=== PATIENT | female | born 1975 ===

== ENCOUNTER 2018-06-06 23:57 | Emergency (ER) | payer SELFPAY ==
[2018-06-07 00:36] VITALS: BMI 30.8
[2018-06-07 00:46] VITALS: BP 135/76; PULSE 100; RESP 18; TEMP 99.8; O2SAT 100
[2018-06-07] MEDS ORDERED: Benzocaine/Menthol (Cepacol) Lozenge MT STA (00:50)
--- NOTE | 2018-06-07 01:40 | ED PDOC ---
Arrival/HPI - General Chief Complaint: ENT Problem Time Seen by Provider: 06/07/18 00:01 Historian: Patient - History of Present Illness Narrative History of Present Illness (Text): 06/07/18 00:50 A 42 year old female with no significant medical history presents to the emergency room complaining of sore throat for the past 1 day. Pain is worse upon swallowing. Patient reports experiencing subjective fever and denies taking any medication for pain. Patient states she took a few tablets of left over augmentin today. No flu shot and denies any sick contacts, difficulty tolerating PO, throat swelling, shortness of breath, chest pain, nausea, vomiting, abdominal pain, neck pain/stiffness, headache, dizziness, drooling, or any other complaints. Time/Duration: 24 hours Symptom Onset: Gradual Symptom Course: Unchanged Activities at Onset: Light Context: Home Past Medical History - Provider Review Nursing Documentation Reviewed: Yes - Gastrointestinal Hx Gastroesophageal Reflux: Yes - Psychiatric Hx Substance Use: No Family/Social History - Physician Review Nursing Documentation Reviewed: Yes Family/Social History: No Known Family HX Smoking Status: Never Smoked Hx Alcohol Use: No Hx Substance Use: No Allergies/Home Meds Allergies/Adverse Reactions: Allergies No Known Allergies Allergy (Verified 06/07/18 00:42) Home Medications: Home Meds Medication Instructions Recorded Confirmed Omeprazole 20 mg PO QOTHERDAY 06/07/18 06/07/18 Review of Systems - Physician Review All systems were reviewed & negative as marked: Yes - Review of Systems Constitutional: Fevers Eyes: Normal. absent: Vision Changes, Photophobia ENT: Sore Throat, Sinus Congestion. absent: Other (drooling) Respiratory: Normal. absent: SOB, Cough, Sputum Cardiovascular: Normal. absent: Chest Pain, Palpitations, Syncope Gastrointestinal: Normal. absent: Abdominal Pain, Nausea, Vomiting Genitourinary Female: Normal. absent: Dysuria, Vaginal Discharge Musculoskeletal: Normal. absent: Back Pain, Neck Pain Skin: Normal. absent: Rash Neurological: Normal. absent: Headache, Dizziness Physical Exam Vital Signs Reviewed: Yes Vital Signs Temp Pulse Resp BP Pulse Ox 06/07/18 00:43 99.8 F H 100 H 18 135/76 100 Temperature: Afebrile Blood Pressure: Normal Pulse: Regular Respiratory Rate: Normal Appearance: Positive for: Well-Appearing, Non-Toxic, Comfortable Pain Distress: None Mental Status: Positive for: Alert and Oriented X 3 - Systems Exam Head: Present: Atraumatic, Normocephalic Pupils: Present: PERRL Extroacular Muscles: Present: EOMI Conjunctiva: Present: Normal Ears: Present: Normal, NORMAL TM, Normal Canal Mouth: Present: Moist Mucous Membranes Pharnyx: Present: ERYTHEMA (ertyhema and swelling to bilateral tonsils), TONSILS ENLARGED (mildly bilaterally). No: EXUDATE, Uvular Deviation, Strider, Other (no drooling, no tripoding) Neck: Present: Normal Range of Motion. No: Meningeal Signs Respiratory/Chest: Present: Clear to Auscultation, Good Air Exchange. No: Respiratory Distress, Accessory Muscle Use Cardiovascular: Present: Regular Rate and Rhythm, Normal S1, S2, Peripheal Pulses Present Abdomen: Present: Normal Bowel Sounds. No: Tenderness, Distention, Peritoneal Signs, Rebound, Guarding Upper Extremity: Present: Normal Inspection, Normal ROM, NORMAL PULSES, Neurovascularly Intact, Capillary Refill < 2s. No: Temperature Abnormalties Lower Extremity: Present: Normal ROM Neurological: Present: GCS=15, CN II-XII Intact, Speech Normal, Motor Func Grossly Intact, Normal Sensory Function, Gait Normal Skin: Present: Warm, Dry, Normal Color. No: Rashes Lymphatic: No: Cervical Adenopathy Psychiatric: Present: Alert, Oriented x 3, Normal Insight, Normal Concentration, Normal Affect, Normal Mood Medical Decision Making ED Course and Treatment: 06/07/18 00:50 Impression: 42 year old female presenting to the emergency room complaining of a sore throat. Plan: -- Cepacol -- Toradol -- Rapid strep test -- Rapid flu AB test -- Reassess and disposition Prior Visits: Notes and results from previous visits were reviewed. Progress Notes: Rapid strep negative Rapid flu negative Patient reports improvement in symptoms with medication. Pt most likely with viral syndrome. Advised supportive treatment and PMD followup. Diagnostic testing results and plan of care discussed with patient. Strict instructions given regarding prescription use, importance of followup, and signs/symptoms to return to ER including SOB, chest pain, vomiting, difficulty eating or breathing, or any other new/worsening symptoms. Pt verbalized understanding of discussion. Patient is A&Ox3, ambulating with steady gait, with vital signs stable for discharge. - Lab Interpretations Lab Results: Lab Results 06/07/18 01:02: Influenza Typ A,B (EIA) Negative for flu a/b 06/07/18 01:02: Grp A Beta Strep Ag Negative I have reviewed the lab results: Yes - Medication Orders Current Medication Orders: Discontinued Medications Benzocaine/Menthol (Cepacol Sore Throat) 1 ananth MT STAT STA Stop: 06/07/18 00:51 Last Admin: 06/07/18 01:26 Dose: 1 ananth Ketorolac Tromethamine (Toradol) 60 mg IM STAT STA Stop: 06/07/18 00:51 Last Admin: 06/07/18 01:26 Dose: 60 mg MAR Pain Assessment Document 06/07/18 01:26 SS (Rec: 06/07/18 01:27 SS [facility] [id number] Pain Reassessment Is this a pain reassessment? No IM Administration Charges Document 06/07/18 01:26 SS (Rec: 06/07/18 01:27 SS [facility] [id number] Charges for Administration # of IM Administrations 1 - Scribe Statement The provider has reviewed the documentation as recorded by the Scribsilver Botello All medical record entries made by the Scribe were at my direction and personally dictated by me. I have reviewed the chart and agree that the record accurately reflects my personal performance of the history, physical exam, medical decision making, and the department course for this patient. I have also personally directed, reviewed, and agree with the discharge instructions and disposition. Disposition/Present on Arrival - Present on Arrival Any Indicators Present on Arrival: No History of DVT/PE: No History of Uncontrolled Diabetes: No Urinary Catheter: No History of Decub. Ulcer: No History Surgical Site Infection Following: None - Disposition Have Diagnosis and Disposition been Completed?: Yes Diagnosis: Viral upper respiratory infection, Pharyngitis Disposition: HOME/ ROUTINE Disposition Time: 01:45 Patient Plan: Discharge Condition: IMPROVED Discharge Instructions (ExitCare): Viral Pharyngitis, Sore Throat, Adult (DC), Viral Upper Respiratory Infection, Adult (DC) Print Language: GERMAN Additional Instructions: Ibuprofeno cada 6 horas para la fiebre y el dolor. Tylenol cada 4 horas para la fiebre. Cepacol cada 4 horas para el dolor de garganta segn sea necesario. Aumentar los fluidos [place], no actividad vigorosa. Seguimiento con mdico primario en 2 ross. Regrese a la jerald de emergencias con cualquier sntoma nuevo o que empeore Prescriptions: Benzocaine/Menthol [Cepacol Sore Throat] 1 ananth MM Q4 PRN #30 ananth PRN Reason: Sore Throat Ibuprofen [Motrin Tab] 600 mg PO Q8 PRN #30 tab PRN Reason: Pain, Moderate (4-7) Ref[place]: [facility] [place] - Follow up with primary No Luther MD [Medical Doctor] - Follow up with primary Forms: [facility] (German), WORK NOTE
== END 2018-06-07 03:01 | disposition home or self-care (01) ==
LOC: ED 23:57
DX: J02.9 Acute pharyngitis, unspecified (principal)
CPT/HCPCS: 81025; 87070; 87430; 87804; 96372; 99282; J1885